=== PATIENT | male | born 2005 | race Caucasian/White ===

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

== ENCOUNTER 2025-04-06 16:05 | Outpatient (CLI) | payer OTHER | END 2025-04-06 16:06 | disposition home or self-care (01) | LOC: SCSRAD 16:05 | DX: S89.92XA Unspecified injury of left lower leg, initial encounter (principal) ==